=== PATIENT | male | born 1935 | race Caucasian/White ===

== ENCOUNTER 2022-02-18 23:18 | Inpatient (IN) | payer OTHER, MEDICAID ==
[~2022-02-18] VITALS: Ht 157.5 cm; Wt 85.9 kg
[2022-02-19] VITALS (11 sets, daily range): BP systolic 80–118; BP diastolic 51–84
[2022-02-19] MEDS ORDERED: ONDANSETRON HCL 4MG/2ML INJ IV STA (00:02)
[2022-02-19] MEDS ORDERED: MORPHINE SULFATE 4 MG/ML CPJ (NOT FOR IM USE) IV STA (00:02)
[2022-02-19] MEDS ORDERED: SODIUM CHLORIDE 0.9% 1,000 ML IV ONE (00:15)
[2022-02-19 00:35] LABS: HEMATOCRIT. 43.6 % (42.0-52.0); HEMOGLOBIN. 14.6 g/dL (14.0-18.0); MEAN CORPUSCULAR HEMOGLOBIN 29.9 pg (28.0-32.0); MEAN CORPUSCULAR VOLUME 89.1 fL (80.0-94.0); MEAN PLATELET VOLUME 8.5 fl (7.4-10.4); PLATELET 150 x1000/uL (130-400); RED BLOOD CELL COUNT 4.89 mill/uL (4.7-6.1); RED CELL DISTRIBUTION WIDTH 15.3 % (11.6-14.6)
[2022-02-19 00:39] LABS: CHLORIDE 95 mEq/L (98-107)
[2022-02-19 00:41] LABS: INR 1.5; PROTHROMBIN TIME 15.6 sec (9.6-11.0)
[2022-02-19 00:49] LABS: ETHANOL BLOOD < 10 mg/dL
[2022-02-19] MEDS ORDERED: METRONIDAZOLE 500 MG PREMIX 100 ML IV NR (01:00)
[2022-02-19] MEDS ORDERED: SODIUM CHLORIDE 0.9% 1,000 ML IV NR (01:00)
[2022-02-19] MEDS ORDERED: CEFTRIAXONE 1 G PREMIX 50 ML IV NR ×2 (01:05→02:45)
[2022-02-19] MEDS ORDERED: IOHEXOL-300 100 ML BOTTLE ONE (01:45)
[2022-02-19 03:25] LABS: PLATELET ESTIMATE NORMAL
[2022-02-19] MEDS ORDERED: MORPHINE SULFATE 4 MG/ML CPJ (NOT FOR IM USE) IV ONE (05:30)
[2022-02-19 06:04] LABS: CLARITY URINE CLEAR (CLEAR); COLOR URINE YELLOW (YELLOW); PROTEIN URINE TRACE (NEGATIVE); SPECIFIC GRAVITY URINE 1.015 (1.005-1.030)
[2022-02-19 06:05] LABS: KETONES URINE TRACE (NEGATIVE); LEUKOCYTE ESTERASE URINE NEGATIVE (NEGATIVE); NITRITE URINE NEGATIVE (NEGATIVE); OCCULT BLOOD URINE NEGATIVE (NEGATIVE); UROBILINOGEN URINE 0.2 E.U./dL (0.2-1.0)
[2022-02-19 06:12] LABS: *AMPHETAMINES SCREEN URINE NEGATIVE (NEGATIVE); *BARBITURATES SCREEN URINE NEGATIVE (NEGATIVE); *BENZODIAZEPINES SCREEN URINE NEGATIVE (NEGATIVE); *COCAINE SCREEN URINE NEGATIVE (NEGATIVE); CANNABINOID URINE SCREEN NEGATIVE (NEGATIVE); METHADONE URINE SCREEN NEGATIVE (NEGATIVE); OPIATES URINE SCREEN PRESUMTIVE POSITIVE (NEGATIVE); PHENCYCLIDINE URINE SCREEN NEGATIVE (NEGATIVE)
[2022-02-19] MEDS ORDERED: NALOXONE HCL 0.4MG/ML VIAL IV PRN (10:00)
[2022-02-19] MEDS ORDERED: ACETAMINOPHEN 325MG TABLET PO PRN ×2 (13:45)
[2022-02-19] MEDS ORDERED: IPRATROPIUM/ALBUTEROL 0.5-3(2.5)MG/3ML NEB HHN PRN (13:45)
[2022-02-19] MEDS ORDERED: CLONIDINE 0.1MG TABLET PO PRN (13:45)
[2022-02-19] MEDS ORDERED: ONDANSETRON HCL 4MG/2ML INJ IV PRN (13:45)
[2022-02-19] MEDS ORDERED: HYDROCODONE/ACETAMINOPHEN 5/325MG TABLET PO PRN (13:45)
[2022-02-19 13:59] LABS: BG BASE EXCESS 0.7 mmol/L (-2.0-2.0); BG CARBOXYHEMOGLOBIN 1.2 % (0.5-1.5); BG FRACTION INSPIRED OXYGEN 28; BG HCO3 ACT 25.7 mmol/L (22.0-26.0); BG OXYHEMOGLOBIN 95.8 % (94.0-97.0); BG PCO2 42.9 mmHg (35.0-45.0); BG PH 7.396 (7.350-7.450); BG PO2 114.4 mmHg (75.0-100.0); BG SAMPLE SITE RIGHT RADIAL; BG TOTAL HEMOGLOBIN 14.1 g/dL (12.0-18.0); BG VENT MODE NASAL CANNULA
[2022-02-19] MEDS: DILTIAZEM HCL 5MG/ML 5ML VIAL IV PRN ×2 (14:55→21:59)
[2022-02-19] MEDS: SODIUM CHLORIDE 0.9% 1,000 ML IV SCH (15:07)
[2022-02-19] MEDS ORDERED: DILTIAZEM HCL 125 MG in DEXT 5% WATER 100 ML IV SCH (16:30)
[2022-02-19] MEDS ORDERED: DIGOXIN 500MCG/2ML AMP IV NR (17:00)
[2022-02-19] MEDS: MORPHINE SULFATE 2 MG/ML CPJ (NOT FOR IM USE) IV PRN (17:05)
[2022-02-19] MEDS ORDERED: DILTIAZEM HCL 5MG/ML 5ML VIAL IV NR (18:15)
[2022-02-20] VITALS (13 sets, daily range): BP systolic 80–115; BP diastolic 30–78
[2022-02-20] MEDS: SODIUM CHLORIDE 0.9% 1,000 ML IV SCH ×3 (00:46→21:21)
[2022-02-20] MEDS ORDERED: AMIODARONE HCL 150 MG in DEXT 5% WATER 100 ML IV NR (01:30)
[2022-02-20 05:40] LABS: EOSINOPHILS % 1.7 % (0.0-5.0); HEMATOCRIT. 38.7 % (42.0-52.0); HEMOGLOBIN. 12.9 g/dL (14.0-18.0); LYMPHOCYTES % 8.8 % (20.0-50.0); MEAN CORPUSCULAR HEMOGLOBIN 29.6 pg (28.0-32.0); MEAN CORPUSCULAR VOLUME 88.6 fL (80.0-94.0); MEAN PLATELET VOLUME 9.1 fl (7.4-10.4); MONOCYTES % 13.1 % (2.0-8.0); NEUTROPHILS % 76.4 % (40.0-76.0); PLATELET 138 x1000/uL (130-400); RED BLOOD CELL COUNT 4.37 mill/uL (4.7-6.1); RED CELL DISTRIBUTION WIDTH 15.3 % (11.6-14.6)
[2022-02-20] MEDS: AMIODARONE HCL 900 MG in DEXT 5% WATER 482 ML IV PRN (06:20)
[2022-02-20] MEDS ORDERED: AMIODARONE HCL 150 MG in DEXT 5% WATER 100 ML IV SCH (07:30)
[2022-02-20] MEDS: FINASTERIDE 5MG TABLET PO SCH (08:20)
[2022-02-20] MEDS: ENOXAPARIN 30MG/0.3ML SYR SUBCUT SCH (08:20)
[2022-02-20] MEDS: LORAZEPAM 2MG/ML CPJ IV PRN (08:59)
[2022-02-20] MEDS: DILTIAZEM HCL 5MG/ML 5ML VIAL IV PRN (20:12)
[2022-02-21] VITALS (9 sets, daily range): BP systolic 108–142; BP diastolic 54–92
[2022-02-21] MEDS: DILTIAZEM HCL 5MG/ML 5ML VIAL IV PRN (02:00)
[2022-02-21] MEDS: SODIUM CHLORIDE 0.9% 1,000 ML IV SCH ×3 (06:11→21:30)
[2022-02-21 06:24] LABS: HEMATOCRIT. 35.5 % (42.0-52.0); HEMOGLOBIN. 11.8 g/dL (14.0-18.0); MEAN CORPUSCULAR HEMOGLOBIN 29.8 pg (28.0-32.0); MEAN CORPUSCULAR VOLUME 89.5 fL (80.0-94.0); MEAN PLATELET VOLUME 8.5 fl (7.4-10.4); PLATELET 146 x1000/uL (130-400); RED BLOOD CELL COUNT 3.96 mill/uL (4.7-6.1); RED CELL DISTRIBUTION WIDTH 15.3 % (11.6-14.6)
[2022-02-21 06:49] LABS: PHOSPHORUS 4.4 mg/dL (2.5-4.9)
[2022-02-21] MEDS: FINASTERIDE 5MG TABLET PO SCH (08:32)
[2022-02-21] MEDS: ENOXAPARIN 30MG/0.3ML SYR SUBCUT SCH (08:32)
[2022-02-21] MEDS ORDERED: FINA5TAB11 PO (10:20)
[2022-02-21 10:35] LABS: PLATELET ESTIMATE NORMAL
[2022-02-22] VITALS (34 sets, daily range): BP systolic 76–132; BP diastolic 37–66
[2022-02-22] MEDS: SODIUM CHLORIDE 0.9% 1,000 ML IV SCH ×3 (06:01→22:50)
[2022-02-22] MEDS ORDERED: CEFTRIAXONE 1 G PREMIX 50 ML IV SCH (07:30)
[2022-02-22 07:52] LABS: BASOPHILS % 0.1 % (0.0-2.0); EOSINOPHILS % 0.1 % (0.0-5.0); HEMOGLOBIN. 11.6 g/dL (14.0-18.0); LYMPHOCYTES % 7.1 % (20.0-50.0); MEAN CORPUSCULAR HEMOGLOBIN 29.9 pg (28.0-32.0); MEAN CORPUSCULAR VOLUME 90.2 fL (80.0-94.0); MEAN PLATELET VOLUME 8.4 fl (7.4-10.4); MONOCYTES % 14.2 % (2.0-8.0); NEUTROPHILS % 78.5 % (40.0-76.0); PLATELET 147 x1000/uL (130-400); RED BLOOD CELL COUNT 3.88 mill/uL (4.7-6.1); RED CELL DISTRIBUTION WIDTH 15.7 % (11.6-14.6)
[2022-02-22 07:59] LABS: CHLORIDE 106 mEq/L (98-107)
[2022-02-22 08:06] LABS: PHOSPHORUS 7.3 mg/dL (2.5-4.9)
[2022-02-22] MEDS: FINASTERIDE 5MG TABLET PO SCH (08:51)
[2022-02-22] MEDS: ENOXAPARIN 30MG/0.3ML SYR SUBCUT SCH (08:56)
[2022-02-22] MEDS: AZITHROMYCIN 500 MG in DEXT 5% WATER 250 ML IV SCH (08:56)
[2022-02-22 09:11] LABS: BG BASE EXCESS -4.7 mmol/L (-2.0-2.0); BG CARBOXYHEMOGLOBIN 0.1 % (0.5-1.5); BG DEOXYHEMOGLOBIN 1.6 % (0.0-5.0); BG FRACTION INSPIRED OXYGEN 100; BG HCO3 ACT 23.8 mmol/L (22.0-26.0); BG METHEMOGLOBIN 0.4 % (0.0-1.5); BG OXYGEN SATURATION 98.4 % (92.0-98.5); BG OXYHEMOGLOBIN 97.9 % (94.0-97.0); BG PCO2 60.5 mmHg (35.0-45.0); BG PH 7.213 (7.350-7.450); BG PO2 143.2 mmHg (75.0-100.0); BG SAMPLE SITE RIGHT RADIAL; BG TOTAL HEMOGLOBIN 12.3 g/dL (12.0-18.0); BG VENT MODE MASK - NRB
[2022-02-22] MEDS: AMIODARONE HCL 900 MG in DEXT 5% WATER 482 ML IV PRN (10:21)
[2022-02-22] MEDS: CEFTRIAXONE 1,000 MG in DEXTROSE 5% WATER 50 ML IV SCH (10:28)
[2022-02-22] MEDS: IPRATROPIUM/ALBUTEROL 0.5-3(2.5)MG/3ML NEB HHN SCH ×4 (10:52→23:44)
[2022-02-22] MEDS ORDERED: DIATR MEGLU/DIATRIZOATE SOLN 120ML ONE (11:44)
[2022-02-22] MEDS: ACETYLCYSTEINE 200MG/ML 20% VIAL 4ML INH SCH ×2 (14:00→23:44)
[2022-02-22] MEDS ORDERED: AMIODARONE HCL 150 MG in DEXT 5% WATER 100 ML IV PRN (15:30)
[2022-02-22] MEDS: METRONIDAZOLE 500 MG PREMIX 100 ML IV SCH ×2 (15:59→17:18)
[2022-02-22 17:42] LABS: BG BASE EXCESS -2.4 mmol/L (-2.0-2.0); BG CARBOXYHEMOGLOBIN 0.3 % (0.5-1.5); BG DEOXYHEMOGLOBIN 5.9 % (0.0-5.0); BG FRACTION INSPIRED OXYGEN 60; BG HCO3 ACT 27.6 mmol/L (22.0-26.0); BG METHEMOGLOBIN 0.2 % (0.0-1.5); BG OXYGEN SATURATION 94.1 % (92.0-98.5); BG OXYHEMOGLOBIN 93.6 % (94.0-97.0); BG PCO2 75.9 mmHg (35.0-45.0); BG PH 7.178 (7.350-7.450); BG PO2 79.6 mmHg (75.0-100.0); BG SAMPLE SITE RIGHT RADIAL; BG TOTAL HEMOGLOBIN 12.4 g/dL (12.0-18.0); BG TOTAL RESPIRATORY RATE 20 b/min; BG VENT MODE MASK - BIPAP
[2022-02-22] MEDS: PHENYLEPHRINE 50 MG in DEXT 5% WATER 245 ML IV PRN (19:00)
[2022-02-22 22:12] LABS: BG BASE EXCESS -2.3 mmol/L (-2.0-2.0); BG CARBOXYHEMOGLOBIN 0.2 % (0.5-1.5); BG DEOXYHEMOGLOBIN 5.2 % (0.0-5.0); BG FRACTION INSPIRED OXYGEN 60; BG HCO3 ACT 26.5 mmol/L (22.0-26.0); BG METHEMOGLOBIN 0.2 % (0.0-1.5); BG OXYGEN SATURATION 94.8 % (92.0-98.5); BG OXYHEMOGLOBIN 94.4 % (94.0-97.0); BG PCO2 65.8 mmHg (35.0-45.0); BG PH 7.223 (7.350-7.450); BG PO2 79.6 mmHg (75.0-100.0); BG SAMPLE SITE RIGHT RADIAL; BG TOTAL HEMOGLOBIN 12.3 g/dL (12.0-18.0); BG VENT MODE MASK - BIPAP
[2022-02-23] VITALS (93 sets, daily range): BP systolic 69–135; BP diastolic 26–107
[2022-02-23] MEDS: PHENYLEPHRINE 50 MG in DEXT 5% WATER 245 ML IV PRN (01:27)
[2022-02-23] MEDS: IPRATROPIUM/ALBUTEROL 0.5-3(2.5)MG/3ML NEB HHN SCH ×5 (03:50→20:01)
[2022-02-23] MEDS: METRONIDAZOLE 500 MG PREMIX 100 ML IV SCH ×3 (04:32→18:30)
[2022-02-23 05:11] LABS: HEMATOCRIT. 36.9 % (42.0-52.0); HEMOGLOBIN. 11.8 g/dL (14.0-18.0); MEAN CORPUSCULAR HEMOGLOBIN 29.5 pg (28.0-32.0); MEAN PLATELET VOLUME 8.9 fl (7.4-10.4); PLATELET 127 x1000/uL (130-400); RED BLOOD CELL COUNT 4.02 mill/uL (4.7-6.1); RED CELL DISTRIBUTION WIDTH 16.7 % (11.6-14.6)
[2022-02-23] MEDS: PHENYLEPHRINE 100 MG in DEXT 5% WATER 240 ML IV PRN ×3 (05:14→23:43)
[2022-02-23 05:19] LABS: CHLORIDE 111 mEq/L (98-107)
[2022-02-23 05:30] LABS: PHOSPHORUS 5.7 mg/dL (2.5-4.9)
[2022-02-23] MEDS: SODIUM CHLORIDE 0.9% 1,000 ML IV SCH ×2 (05:46→15:04)
[2022-02-23 07:42] LABS: PLATELET ESTIMATE SLIGHTLY DECREASED
[2022-02-23 08:35] LABS: BG BASE EXCESS -2.4 mmol/L (-2.0-2.0); BG CARBOXYHEMOGLOBIN 0.2 % (0.5-1.5); BG DEOXYHEMOGLOBIN 2.6 % (0.0-5.0); BG FRACTION INSPIRED OXYGEN 60; BG HCO3 ACT 24.2 mmol/L (22.0-26.0); BG METHEMOGLOBIN 1.1 % (0.0-1.5); BG OXYGEN SATURATION 97.4 % (92.0-98.5); BG OXYHEMOGLOBIN 96.1 % (94.0-97.0); BG PCO2 49.2 mmHg (35.0-45.0); BG PH 7.309 (7.350-7.450); BG PO2 106.6 mmHg (75.0-100.0); BG SAMPLE SITE RIGHT RADIAL; BG TOTAL HEMOGLOBIN 12.2 g/dL (12.0-18.0); BG VENT MODE MASK - BIPAP
[2022-02-23] MEDS: ACETYLCYSTEINE 200MG/ML 20% VIAL 4ML INH SCH (08:43)
[2022-02-23] MEDS: FINASTERIDE 5MG TABLET PO SCH (09:00)
[2022-02-23] MEDS: ENOXAPARIN 30MG/0.3ML SYR SUBCUT SCH (09:17)
[2022-02-23] MEDS: AZITHROMYCIN 500 MG in DEXT 5% WATER 250 ML IV SCH (09:17)
[2022-02-23] MEDS: CEFTRIAXONE 1,000 MG in DEXTROSE 5% WATER 50 ML IV SCH (10:19)
[2022-02-23] MEDS ORDERED: AMIODARONE HCL 150 MG in DEXT 5% WATER 100 ML IV NR (11:30)
[2022-02-23] MEDS ORDERED: ATROPINE SULFATE 1MG/10ML SYR IV NR (20:15)
[2022-02-23] MEDS: MORPHINE SULFATE 2 MG/ML CPJ (NOT FOR IM USE) IV PRN (21:38)
[2022-02-23] MEDS: LORAZEPAM 2MG/ML CPJ IV PRN (23:26)
[2022-02-23] MEDS: DILTIAZEM HCL 5MG/ML 5ML VIAL IV PRN (23:29)
[2022-02-24] VITALS (90 sets, daily range): BP systolic 85–158; BP diastolic 34–105
[2022-02-24] MEDS: IPRATROPIUM/ALBUTEROL 0.5-3(2.5)MG/3ML NEB HHN SCH ×6 (00:07→20:15)
[2022-02-24] MEDS: ACETYLCYSTEINE 200MG/ML 20% VIAL 4ML INH SCH ×3 (00:07→16:21)
[2022-02-24] MEDS: SODIUM CHLORIDE 0.9% 1,000 ML IV SCH (02:39)
[2022-02-24] MEDS: METRONIDAZOLE 500 MG PREMIX 100 ML IV SCH ×3 (02:40→18:16)
[2022-02-24 05:49] LABS: HEMATOCRIT. 34.7 % (42.0-52.0); HEMOGLOBIN. 11.5 g/dL (14.0-18.0); MEAN CORPUSCULAR HEMOGLOBIN 29.7 pg (28.0-32.0); MEAN CORPUSCULAR VOLUME 89.5 fL (80.0-94.0); MEAN PLATELET VOLUME 8.7 fl (7.4-10.4); PLATELET 146 x1000/uL (130-400); RED BLOOD CELL COUNT 3.87 mill/uL (4.7-6.1); RED CELL DISTRIBUTION WIDTH 15.8 % (11.6-14.6)
[2022-02-24] MEDS: DILTIAZEM HCL 5MG/ML 5ML VIAL IV PRN (06:01)
[2022-02-24 08:11] LABS: PLATELET ESTIMATE NORMAL
[2022-02-24 08:24] LABS: PHOSPHORUS 2.7 mg/dL (2.5-4.9)
[2022-02-24] MEDS: FINASTERIDE 5MG TABLET PO SCH (09:00)
[2022-02-24] MEDS: AZITHROMYCIN 500 MG in DEXT 5% WATER 250 ML IV SCH (09:13)
[2022-02-24] MEDS: ENOXAPARIN 30MG/0.3ML SYR SUBCUT SCH (09:13)
[2022-02-24 09:20] LABS: BG BASE EXCESS 1.1 mmol/L (-2.0-2.0); BG CARBOXYHEMOGLOBIN 0.6 % (0.5-1.5); BG DEOXYHEMOGLOBIN 7.5 % (0.0-5.0); BG FRACTION INSPIRED OXYGEN 28; BG METHEMOGLOBIN 0.5 % (0.0-1.5); BG OXYGEN SATURATION 92.4 % (92.0-98.5); BG OXYHEMOGLOBIN 91.4 % (94.0-97.0); BG PCO2 61.7 mmHg (35.0-45.0); BG PO2 69.4 mmHg (75.0-100.0); BG SAMPLE SITE RIGHT RADIAL; BG TOTAL HEMOGLOBIN 12.6 g/dL (12.0-18.0); BG VENT MODE NASAL CANNULA
[2022-02-24] MEDS ORDERED: AMIODARONE HCL 900 MG in DEXT 5% WATER 482 ML IV SCH (10:00)
[2022-02-24] MEDS: CEFTRIAXONE 1,000 MG in DEXTROSE 5% WATER 50 ML IV SCH (10:14)
[2022-02-24] MEDS: DEXTROSE 5% WATER 1,000 ML IV SCH (10:29)
[2022-02-24] MEDS ORDERED: MORPHINE SULFATE 2 MG/ML CPJ (NOT FOR IM USE) IV PRN (19:15)
[2022-02-24] MEDS ORDERED: NALOXONE HCL 0.4MG/ML VIAL IV PRN (19:30)
[2022-02-25] VITALS (94 sets, daily range): BP systolic 33–150; BP diastolic 24–104
[2022-02-25] MEDS: IPRATROPIUM/ALBUTEROL 0.5-3(2.5)MG/3ML NEB HHN SCH ×6 (00:20→20:34)
[2022-02-25] MEDS: ACETYLCYSTEINE 200MG/ML 20% VIAL 4ML INH SCH ×4 (00:20→16:25)
[2022-02-25] MEDS: DEXTROSE 5% WATER 1,000 ML IV SCH ×2 (04:24→13:55)
[2022-02-25] MEDS: METRONIDAZOLE 500 MG PREMIX 100 ML IV SCH ×3 (04:26→19:30)
[2022-02-25 05:50] LABS: HEMATOCRIT. 34.3 % (42.0-52.0); HEMOGLOBIN. 11.1 g/dL (14.0-18.0); MEAN CORPUSCULAR HEMOGLOBIN 29.3 pg (28.0-32.0); MEAN PLATELET VOLUME 8.4 fl (7.4-10.4); PLATELET 110 x1000/uL (130-400); RED BLOOD CELL COUNT 3.81 mill/uL (4.7-6.1); RED CELL DISTRIBUTION WIDTH 16.2 % (11.6-14.6)
[2022-02-25 06:06] LABS: PHOSPHORUS 1.7 mg/dL (2.5-4.9)
[2022-02-25] MEDS: DILTIAZEM HCL 5MG/ML 5ML VIAL IV PRN (06:14)
[2022-02-25 07:18] LABS: BG BASE EXCESS 0.6 mmol/L (-2.0-2.0); BG CARBOXYHEMOGLOBIN 0.4 % (0.5-1.5); BG DEOXYHEMOGLOBIN 10.4 % (0.0-5.0); BG HCO3 ACT 27.5 mmol/L (22.0-26.0); BG METHEMOGLOBIN 0.3 % (0.0-1.5); BG OXYGEN SATURATION 89.5 % (92.0-98.5); BG OXYHEMOGLOBIN 88.9 % (94.0-97.0); BG PCO2 54.6 mmHg (35.0-45.0); BG PO2 56.9 mmHg (75.0-100.0); BG SAMPLE SITE RIGHT RADIAL; BG TOTAL HEMOGLOBIN 11.9 g/dL (12.0-18.0); BG VENT MODE NASAL CANNULA
[2022-02-25 07:29] LABS: PLATELET ESTIMATE DECREASED
[2022-02-25] MEDS: ENOXAPARIN 30MG/0.3ML SYR SUBCUT SCH (08:42)
[2022-02-25] MEDS: FINASTERIDE 5MG TABLET PO SCH (08:42)
[2022-02-25] MEDS: AZITHROMYCIN 500 MG in DEXT 5% WATER 250 ML IV SCH (08:42)
[2022-02-25] MEDS: CEFTRIAXONE 1,000 MG in DEXTROSE 5% WATER 50 ML IV SCH (10:53)
[2022-02-25] MEDS ORDERED: POTASSIUM PHOS,M-BASIC-D-BASIC 20 MMOL in DEXT 5% WATER 243.3333 ML IV NR (16:30)
[2022-02-25] MEDS: BLOOD SUGAR DIAGNOSTIC STRIP TEST SCH (17:51)
[2022-02-26] VITALS (95 sets, daily range): BP systolic 57–164; BP diastolic 19–127
[2022-02-26] MEDS: DEXTROSE 5% WATER 1,000 ML IV SCH ×2 (01:40→15:41)
[2022-02-26] MEDS: IPRATROPIUM/ALBUTEROL 0.5-3(2.5)MG/3ML NEB HHN SCH ×3 (05:45→08:36)
[2022-02-26 05:46] LABS: HEMATOCRIT. 32.2 % (42.0-52.0); HEMOGLOBIN. 10.7 g/dL (14.0-18.0); MEAN CORPUSCULAR HEMOGLOBIN 29.7 pg (28.0-32.0); MEAN CORPUSCULAR VOLUME 89.4 fL (80.0-94.0); MEAN PLATELET VOLUME 8.6 fl (7.4-10.4); PLATELET 93 x1000/uL (130-400); RED CELL DISTRIBUTION WIDTH 15.8 % (11.6-14.6)
[2022-02-26] MEDS: BLOOD SUGAR DIAGNOSTIC STRIP TEST SCH ×2 (06:00→17:42)
[2022-02-26 06:35] LABS: CHLORIDE 116 mEq/L (98-107)
[2022-02-26 06:51] LABS: PHOSPHORUS 1.5 mg/dL (2.5-4.9)
[2022-02-26] MEDS: METRONIDAZOLE 500 MG PREMIX 100 ML IV SCH ×4 (07:01→18:00)
[2022-02-26] MEDS: PHENYLEPHRINE 100 MG in DEXT 5% WATER 240 ML IV PRN ×2 (07:09→22:11)
[2022-02-26 07:43] LABS: BG BASE EXCESS 2.3 mmol/L (-2.0-2.0); BG DEOXYHEMOGLOBIN 7.9 % (0.0-5.0); BG HCO3 ACT 28.6 mmol/L (22.0-26.0); BG METHEMOGLOBIN 0.4 % (0.0-1.5); BG OXYHEMOGLOBIN 90.7 % (94.0-97.0); BG PCO2 52.2 mmHg (35.0-45.0); BG PH 7.357 (7.350-7.450); BG PO2 60.8 mmHg (75.0-100.0); BG SAMPLE SITE RIGHT RADIAL; BG TOTAL HEMOGLOBIN 12.1 g/dL (12.0-18.0); BG VENT MODE NASAL CANNULA
[2022-02-26] MEDS: AZITHROMYCIN 500 MG in DEXT 5% WATER 250 ML IV SCH (08:00)
[2022-02-26] MEDS: FINASTERIDE 5MG TABLET PO SCH (08:01)
[2022-02-26] MEDS: ENOXAPARIN 40MG/0.4ML SYR SUBCUT SCH (08:01)
[2022-02-26] MEDS: ACETYLCYSTEINE 200MG/ML 20% VIAL 4ML INH SCH (08:36)
[2022-02-26] MEDS: CEFTRIAXONE 1,000 MG in DEXTROSE 5% WATER 50 ML IV SCH (09:01)
[2022-02-26 09:39] LABS: PLATELET ESTIMATE DECREASED
[2022-02-26] MEDS ORDERED: MIDODRINE HCL 5MG TABLET PO SCH (14:00)
[2022-02-26] MEDS: MIDODRINE HCL 5MG TABLET PO SCH ×2 (14:22→17:54)
[2022-02-26] MEDS ORDERED: POTASSIUM PHOS,M-BASIC-D-BASIC 20 MMOL in DEXT 5% WATER 243.3333 ML IV NR (15:00)
[2022-02-26] MEDS: IPRATROPIUM BROMIDE (0.02%) 0.5MG/2.5ML NEB HHN SCH (20:15)
[2022-02-27] VITALS (101 sets, daily range): BP systolic 54–153; BP diastolic 26–105
[2022-02-27] MEDS: IPRATROPIUM BROMIDE (0.02%) 0.5MG/2.5ML NEB HHN SCH ×4 (00:49→20:29)
[2022-02-27] MEDS: ACETYLCYSTEINE 200MG/ML 20% VIAL 4ML INH SCH ×3 (00:49→14:29)
[2022-02-27] MEDS: DEXTROSE 5% WATER 1,000 ML IV SCH ×2 (01:47→11:41)
[2022-02-27 05:56] LABS: HEMATOCRIT. 30.9 % (42.0-52.0); HEMOGLOBIN. 10.4 g/dL (14.0-18.0); MEAN CORPUSCULAR HEMOGLOBIN 30.4 pg (28.0-32.0); MEAN CORPUSCULAR VOLUME 90.1 fL (80.0-94.0); MEAN PLATELET VOLUME 9.3 fl (7.4-10.4); PLATELET 94 x1000/uL (130-400); RED BLOOD CELL COUNT 3.43 mill/uL (4.7-6.1)
[2022-02-27] MEDS: METRONIDAZOLE 500 MG PREMIX 100 ML IV SCH ×3 (06:02→17:55)
[2022-02-27] MEDS: BLOOD SUGAR DIAGNOSTIC STRIP TEST SCH ×2 (06:03→17:55)
[2022-02-27 06:10] LABS: CHLORIDE 108 mEq/L (98-107)
[2022-02-27 06:20] LABS: PHOSPHORUS 1.7 mg/dL (2.5-4.9)
[2022-02-27 08:12] LABS: BG BASE EXCESS 1.1 mmol/L (-2.0-2.0); BG CARBOXYHEMOGLOBIN 0.8 % (0.5-1.5); BG DEOXYHEMOGLOBIN 9.8 % (0.0-5.0); BG FRACTION INSPIRED OXYGEN 28; BG HCO3 ACT 27.8 mmol/L (22.0-26.0); BG METHEMOGLOBIN 0.1 % (0.0-1.5); BG OXYGEN SATURATION 90.1 % (92.0-98.5); BG OXYHEMOGLOBIN 89.3 % (94.0-97.0); BG PCO2 54.1 mmHg (35.0-45.0); BG PH 7.328 (7.350-7.450); BG PO2 57.8 mmHg (75.0-100.0); BG SAMPLE SITE RIGHT RADIAL; BG TOTAL HEMOGLOBIN 10.5 g/dL (12.0-18.0); BG VENT MODE NASAL CANNULA
[2022-02-27 08:17] LABS: PLATELET ESTIMATE DECREASED
[2022-02-27] MEDS: ENOXAPARIN 40MG/0.4ML SYR SUBCUT SCH (08:33)
[2022-02-27] MEDS: FINASTERIDE 5MG TABLET PO SCH (08:34)
[2022-02-27] MEDS: MIDODRINE HCL 5MG TABLET PO SCH ×3 (08:34→17:55)
[2022-02-27] MEDS ORDERED: POTASSIUM PHOS,M-BASIC-D-BASIC 30 MMOL in DEXT 5% WATER 500 ML IV NR ×2 (09:00→10:30)
[2022-02-27] MEDS: CEFTRIAXONE 1,000 MG in DEXTROSE 5% WATER 50 ML IV SCH (09:42)
[2022-02-28] VITALS (79 sets, daily range): BP systolic 85–130; BP diastolic 36–66
[2022-02-28] MEDS: DEXTROSE 5% WATER 1,000 ML IV SCH (00:58)
[2022-02-28] MEDS: ACETYLCYSTEINE 200MG/ML 20% VIAL 4ML INH SCH (01:27)
[2022-02-28] MEDS: IPRATROPIUM BROMIDE (0.02%) 0.5MG/2.5ML NEB HHN SCH ×3 (01:27→21:15)
[2022-02-28] MEDS: METRONIDAZOLE 500 MG PREMIX 100 ML IV SCH ×3 (03:09→20:08)
[2022-02-28] MEDS: BLOOD SUGAR DIAGNOSTIC STRIP TEST SCH ×2 (06:13→17:01)
[2022-02-28 06:55] LABS: HEMATOCRIT. 32.2 % (42.0-52.0); HEMOGLOBIN. 10.7 g/dL (14.0-18.0); MEAN CORPUSCULAR HEMOGLOBIN 29.9 pg (28.0-32.0); MEAN CORPUSCULAR VOLUME 90.4 fL (80.0-94.0); MEAN PLATELET VOLUME 8.5 fl (7.4-10.4); PLATELET 82 x1000/uL (130-400); RED BLOOD CELL COUNT 3.57 mill/uL (4.7-6.1); RED CELL DISTRIBUTION WIDTH 15.6 % (11.6-14.6)
[2022-02-28 07:12] LABS: CHLORIDE 103 mEq/L (98-107)
[2022-02-28 07:23] LABS: PHOSPHORUS 2.3 mg/dL (2.5-4.9)
[2022-02-28] MEDS ORDERED: FUROSEMIDE 40MG/4ML VIAL IVP NR (08:15)
[2022-02-28] MEDS: ENOXAPARIN 40MG/0.4ML SYR SUBCUT SCH (08:39)
[2022-02-28] MEDS ORDERED: DEXTROSE 5% WATER 1,000 ML IV SCH (08:45)
[2022-02-28] MEDS ORDERED: POTASSIUM PHOS,M-BASIC-D-BASIC 15 MMOL in DEXT 5% WATER 250 ML IV SCH (10:00)
[2022-02-28] MEDS: MIDODRINE HCL 5MG TABLET PO SCH ×3 (10:29→17:02)
[2022-02-28] MEDS: FINASTERIDE 5MG TABLET PO SCH (10:29)
[2022-02-28] MEDS: CEFTRIAXONE 1,000 MG in DEXTROSE 5% WATER 50 ML IV SCH (10:30)
[2022-02-28 14:27] LABS: PLATELET ESTIMATE DECREASED
[2022-03-01] VITALS (12 sets, daily range): BP systolic 100–140; BP diastolic 50–69
[2022-03-01] MEDS: IPRATROPIUM BROMIDE (0.02%) 0.5MG/2.5ML NEB HHN SCH ×4 (01:42→20:39)
[2022-03-01] MEDS: METRONIDAZOLE 500 MG PREMIX 100 ML IV SCH ×3 (03:11→20:07)
[2022-03-01] MEDS: BLOOD SUGAR DIAGNOSTIC STRIP TEST SCH ×2 (06:20→18:07)
[2022-03-01 07:11] LABS: BASOPHILS % 0.3 % (0.0-2.0); EOSINOPHILS % 3.8 % (0.0-5.0); HEMATOCRIT. 29.6 % (42.0-52.0); HEMOGLOBIN. 9.9 g/dL (14.0-18.0); LYMPHOCYTES % 10.1 % (20.0-50.0); MEAN CORPUSCULAR HEMOGLOBIN 29.6 pg (28.0-32.0); MEAN CORPUSCULAR VOLUME 88.8 fL (80.0-94.0); MEAN PLATELET VOLUME 8.8 fl (7.4-10.4); MONOCYTES % 4.6 % (2.0-8.0); NEUTROPHILS % 81.2 % (40.0-76.0); PLATELET 88 x1000/uL (130-400); RED BLOOD CELL COUNT 3.34 mill/uL (4.7-6.1); RED CELL DISTRIBUTION WIDTH 14.9 % (11.6-14.6)
[2022-03-01 07:52] LABS: CHLORIDE 102 mEq/L (98-107)
[2022-03-01 08:07] LABS: PHOSPHORUS 1.5 mg/dL (2.5-4.9)
[2022-03-01] MEDS ORDERED: POTASSIUM CHLORIDE 20MEQ/PACKET PO NR (09:00)
[2022-03-01] MEDS: ENOXAPARIN 40MG/0.4ML SYR SUBCUT SCH (09:29)
[2022-03-01] MEDS: MIDODRINE HCL 5MG TABLET PO SCH ×3 (09:29→16:00)
[2022-03-01] MEDS: FINASTERIDE 5MG TABLET PO SCH (09:29)
[2022-03-01] MEDS: CEFTRIAXONE 1,000 MG in DEXTROSE 5% WATER 50 ML IV SCH (09:30)
[2022-03-01] MEDS ORDERED: MAGNESIUM 2 G PREMIX 50 ML IV NR (13:00)
[2022-03-01] MEDS ORDERED: POTASSIUM PHOS,M-BASIC-D-BASIC 15 MMOL in DEXT 5% WATER 245 ML IV SCH (16:00)
[2022-03-02] VITALS (11 sets, daily range): BP systolic 98–131; BP diastolic 49–70
[2022-03-02] MEDS: IPRATROPIUM BROMIDE (0.02%) 0.5MG/2.5ML NEB HHN SCH ×4 (00:47→21:05)
[2022-03-02] MEDS: BLOOD SUGAR DIAGNOSTIC STRIP TEST SCH ×2 (06:26→18:00)
[2022-03-02 06:38] LABS: BASOPHILS % 0.4 % (0.0-2.0); EOSINOPHILS % 4.6 % (0.0-5.0); HEMATOCRIT. 32.6 % (42.0-52.0); HEMOGLOBIN. 10.9 g/dL (14.0-18.0); LYMPHOCYTES % 11.4 % (20.0-50.0); MEAN CORPUSCULAR HEMOGLOBIN 29.8 pg (28.0-32.0); MEAN CORPUSCULAR VOLUME 89.1 fL (80.0-94.0); MEAN PLATELET VOLUME 8.3 fl (7.4-10.4); MONOCYTES % 6.2 % (2.0-8.0); NEUTROPHILS % 77.4 % (40.0-76.0); PLATELET 114 x1000/uL (130-400); RED BLOOD CELL COUNT 3.66 mill/uL (4.7-6.1)
[2022-03-02] MEDS: ENOXAPARIN 40MG/0.4ML SYR SUBCUT SCH (08:46)
[2022-03-02] MEDS: MIDODRINE HCL 5MG TABLET PO SCH ×3 (08:47→17:00)
[2022-03-02] MEDS: FINASTERIDE 5MG TABLET PO SCH (08:47)
[2022-03-02 09:53] LABS: BG BASE EXCESS 10.6 mmol/L (-2.0-2.0); BG CARBOXYHEMOGLOBIN 0.5 % (0.5-1.5); BG FRACTION INSPIRED OXYGEN 20; BG METHEMOGLOBIN 0.1 % (0.0-1.5); BG OXYHEMOGLOBIN 94.4 % (94.0-97.0); BG PCO2 67.6 mmHg (35.0-45.0); BG PH 7.368 (7.350-7.450); BG SAMPLE SITE LEFT RADIAL; BG TOTAL HEMOGLOBIN 10.9 g/dL (12.0-18.0); BG VENT MODE NASAL CANNULA
[2022-03-02 10:40] LABS: CHLORIDE 99 mEq/L (98-107)
[2022-03-02 11:03] LABS: PHOSPHORUS 1.8 mg/dL (2.5-4.9)
[2022-03-03] VITALS (7 sets, daily range): BP systolic 98–156; BP diastolic 43–60
[2022-03-03] MEDS: IPRATROPIUM BROMIDE (0.02%) 0.5MG/2.5ML NEB HHN SCH ×4 (02:20→21:45)
[2022-03-03] MEDS: BLOOD SUGAR DIAGNOSTIC STRIP TEST SCH ×2 (06:30→17:22)
[2022-03-03 06:48] LABS: BASOPHILS % 0.1 % (0.0-2.0); EOSINOPHILS % 4.8 % (0.0-5.0); HEMATOCRIT. 29.7 % (42.0-52.0); HEMOGLOBIN. 9.9 g/dL (14.0-18.0); LYMPHOCYTES % 11.4 % (20.0-50.0); MEAN CORPUSCULAR HEMOGLOBIN 29.8 pg (28.0-32.0); MEAN CORPUSCULAR VOLUME 89.3 fL (80.0-94.0); MEAN PLATELET VOLUME 8.4 fl (7.4-10.4); MONOCYTES % 6.6 % (2.0-8.0); NEUTROPHILS % 77.1 % (40.0-76.0); PLATELET 116 x1000/uL (130-400); RED BLOOD CELL COUNT 3.32 mill/uL (4.7-6.1); RED CELL DISTRIBUTION WIDTH 14.9 % (11.6-14.6)
[2022-03-03] MEDS: FINASTERIDE 5MG TABLET PO SCH (08:57)
[2022-03-03] MEDS: MIDODRINE HCL 5MG TABLET PO SCH ×3 (08:59→17:22)
[2022-03-03] MEDS: ENOXAPARIN 40MG/0.4ML SYR SUBCUT SCH (09:00)
[2022-03-03 09:29] LABS: CHLORIDE 100 mEq/L (98-107)
[2022-03-03 09:36] LABS: PHOSPHORUS 1.4 mg/dL (2.5-4.9)
[2022-03-04] VITALS: BP 132/52
[2022-03-04] MEDS: IPRATROPIUM BROMIDE (0.02%) 0.5MG/2.5ML NEB HHN SCH ×5 (02:54→20:32)
[2022-03-04 04:00] VITALS: BP 108/54
[2022-03-04] MEDS: BLOOD SUGAR DIAGNOSTIC STRIP TEST SCH ×2 (05:46→17:19)
[2022-03-04 07:20] LABS: BASOPHILS % 0.5 % (0.0-2.0); EOSINOPHILS % 5.4 % (0.0-5.0); HEMATOCRIT. 29.6 % (42.0-52.0); HEMOGLOBIN. 9.8 g/dL (14.0-18.0); LYMPHOCYTES % 15.7 % (20.0-50.0); MEAN CORPUSCULAR HEMOGLOBIN 29.8 pg (28.0-32.0); MEAN CORPUSCULAR VOLUME 89.9 fL (80.0-94.0); MEAN PLATELET VOLUME 8.2 fl (7.4-10.4); MONOCYTES % 7.3 % (2.0-8.0); NEUTROPHILS % 71.1 % (40.0-76.0); PLATELET 133 x1000/uL (130-400); RED BLOOD CELL COUNT 3.29 mill/uL (4.7-6.1); RED CELL DISTRIBUTION WIDTH 15.4 % (11.6-14.6)
[2022-03-04 07:35] LABS: CHLORIDE 101 mEq/L (98-107)
[2022-03-04 08:00] VITALS: BP 101/59
[2022-03-04] MEDS: ENOXAPARIN 40MG/0.4ML SYR SUBCUT SCH (08:53)
[2022-03-04] MEDS: FINASTERIDE 5MG TABLET PO SCH (08:53)
[2022-03-04] MEDS: MIDODRINE HCL 5MG TABLET PO SCH ×3 (08:54→16:44)
[2022-03-04 10:39] LABS: BG BASE EXCESS 10.7 mmol/L (-2.0-2.0); BG CARBOXYHEMOGLOBIN 0.8 % (0.5-1.5); BG DEOXYHEMOGLOBIN 4.9 % (0.0-5.0); BG FRACTION INSPIRED OXYGEN 28; BG HCO3 ACT 38.1 mmol/L (22.0-26.0); BG METHEMOGLOBIN 0.1 % (0.0-1.5); BG OXYGEN SATURATION 95.1 % (92.0-98.5); BG OXYHEMOGLOBIN 94.2 % (94.0-97.0); BG PH 7.373 (7.350-7.450); BG PO2 74.7 mmHg (75.0-100.0); BG SAMPLE SITE RIGHT RADIAL; BG TOTAL HEMOGLOBIN 11.1 g/dL (12.0-18.0); BG VENT MODE NASAL CANNULA
[2022-03-04 12:00] VITALS: BP 105/83
[2022-03-04 16:00] VITALS: BP 111/85
[2022-03-04 20:15] VITALS: BP 123/48
[2022-03-05 00:06] VITALS: BP 117/74
[2022-03-05] MEDS: IPRATROPIUM BROMIDE (0.02%) 0.5MG/2.5ML NEB HHN SCH ×4 (01:37→20:49)
[2022-03-05 04:00] VITALS: BP 110/48
[2022-03-05] MEDS: BLOOD SUGAR DIAGNOSTIC STRIP TEST SCH (06:00)
[2022-03-05 08:00] VITALS: BP 94/58
[2022-03-05] MEDS: MIDODRINE HCL 5MG TABLET PO SCH ×3 (08:14→17:40)
[2022-03-05] MEDS: FINASTERIDE 5MG TABLET PO SCH (08:14)
[2022-03-05] MEDS: ENOXAPARIN 40MG/0.4ML SYR SUBCUT SCH (08:14)
[2022-03-05 12:00] VITALS: BP 95/60
[2022-03-05] MEDS: DILTIAZEM HCL 60MG TABLET PO SCH ×2 (14:00→21:16)
[2022-03-05 16:00] VITALS: BP 98/59
[2022-03-05 20:53] VITALS: BP 107/55
[2022-03-06] VITALS (7 sets, daily range): BP systolic 111–125; BP diastolic 64–72
[2022-03-06] MEDS: IPRATROPIUM BROMIDE (0.02%) 0.5MG/2.5ML NEB HHN SCH ×4 (01:43→20:32)
[2022-03-06] MEDS: DILTIAZEM HCL 60MG TABLET PO SCH (06:44)
[2022-03-06] MEDS: FINASTERIDE 5MG TABLET PO SCH (08:35)
[2022-03-06] MEDS: MIDODRINE HCL 5MG TABLET PO SCH ×3 (08:35→18:59)
[2022-03-06] MEDS: ENOXAPARIN 40MG/0.4ML SYR SUBCUT SCH (08:42)
[2022-03-06] MEDS ORDERED: AMIODARONE HCL 200 MG TABLET PO NR (13:00)
[2022-03-06 15:56] LABS: BG CARBOXYHEMOGLOBIN 0.6 % (0.5-1.5); BG DEOXYHEMOGLOBIN 7.6 % (0.0-5.0); BG FRACTION INSPIRED OXYGEN 28; BG HCO3 ACT 36.9 mmol/L (22.0-26.0); BG METHEMOGLOBIN 0.5 % (0.0-1.5); BG OXYGEN SATURATION 92.3 % (92.0-98.5); BG OXYHEMOGLOBIN 91.3 % (94.0-97.0); BG PCO2 54.9 mmHg (35.0-45.0); BG PH 7.445 (7.350-7.450); BG PO2 58.8 mmHg (75.0-100.0); BG SAMPLE SITE RIGHT RADIAL; BG TOTAL HEMOGLOBIN 11.7 g/dL (12.0-18.0); BG VENT MODE NASAL CANNULA
[2022-03-06] MEDS ORDERED: DILTIAZEM HCL 30MG TABLET PO SCH (18:00)
[2022-03-06] MEDS ORDERED: METHYLPREDNISOLONE SOD SUCC 40 MG/ML VIAL IV ONE (20:45)
[2022-03-06] MEDS ORDERED: AMIODARONE HCL 200 MG TABLET PO SCH (21:00)
== END 2022-03-06 22:58 | DRG 871 ==
LOC: ER 02-19 00:02 → 6EST 02-19 03:29 → EDBEDREQ 02-19 03:31 → EDBEDREQTM 02-19 03:31 → EDBEDREQSVC 02-19 03:31 → ENRESERV 02-19 07:04 → 6EST 02-19 08:17 → 3WST 02-19 14:34 → CVICU 02-22 18:51 → 5EST 02-28 18:20 → 7WST 03-02 17:47 → 5EST 03-03 10:36 → 7WST 03-03 11:25
PROVIDERS: ADMIT Internal Medicine; ATTEND Internal Medicine
PROC: 0D9670Z Drainage of Stomach with Drainage Device, Via Natural or Artificial Opening (ICD-10-PCS; 2022-02-21)
PROC: 5A09457 Assistance with Respiratory Ventilation, 24-96 Consecutive Hours, Continuous Positive Airway Pressure (ICD-10-PCS; principal; 2022-02-22)
PROC: 02HV33Z Insertion of Infusion Device into Superior Vena Cava, Percutaneous Approach (ICD-10-PCS; 2022-02-23)
PROC: B548ZZA Ultrasonography of Superior Vena Cava, Guidance (ICD-10-PCS; 2022-02-23)
PROC: 5A09357 Assistance with Respiratory Ventilation, Less than 24 Consecutive Hours, Continuous Positive Airway Pressure (ICD-10-PCS; 2022-02-24)
PROC: 5A09357 Assistance with Respiratory Ventilation, Less than 24 Consecutive Hours, Continuous Positive Airway Pressure (ICD-10-PCS; 2022-02-27)
DX: A41.9 Sepsis, unspecified organism (principal); G92.8 Other toxic encephalopathy; J96.02 Acute respiratory failure with hypercapnia; J96.01 Acute respiratory failure with hypoxia; J69.0 Pneumonitis due to inhalation of food and vomit; N17.0 Acute kidney failure with tubular necrosis; R65.21 Severe sepsis with septic shock; E44.0 Moderate protein-calorie malnutrition; K56.609 Unspecified intestinal obstruction, unspecified as to partial versus complete obstruction; I50.30 Unspecified diastolic (congestive) heart failure; E87.29 Other acidosis; E87.0 Hyperosmolality and hypernatremia; I47.1 Supraventricular tachycardia; I13.0 Hypertensive heart and chronic kidney disease with heart failure and stage 1 through stage 4 chronic kidney disease, or unspecified chronic kidney disease; Z66 Do not resuscitate; Z20.822 Contact with and (suspected) exposure to COVID-19; I27.20 Pulmonary hypertension, unspecified; I48.0 Paroxysmal atrial fibrillation; K80.20 Calculus of gallbladder without cholecystitis without obstruction; E87.6 Hypokalemia; D72.821 Monocytosis (symptomatic); I95.9 Hypotension, unspecified; E83.39 Other disorders of phosphorus metabolism; D63.1 Anemia in chronic kidney disease; E87.70 Fluid overload, unspecified; N18.9 Chronic kidney disease, unspecified; I08.1 Rheumatic disorders of both mitral and tricuspid valves; F03.90 Unspecified dementia, unspecified severity, without behavioral disturbance, psychotic disturbance, mood disturbance, and anxiety; I49.3 Ventricular premature depolarization; Z51.5 Encounter for palliative care; Z68.34 Body mass index [BMI] 34.0-34.9, adult; Z78.1 Physical restraint status; Z79.899 Other long term (current) drug therapy; Z82.49 Family history of ischemic heart disease and other diseases of the circulatory system; Z86.73 Personal history of transient ischemic attack (TIA), and cerebral infarction without residual deficits; Z90.49 Acquired absence of other specified parts of digestive tract
CPT/HCPCS: 36415; 36573; 36600; 70551; 71045; 74018; 74177; 74250; 76705; 76770; 76870; 78227; 80048; 80053; 80076; 80305; 80320; 81003; 82375; 82550; 82805; 82962; 83605; 83735; 83880; 84100; 84145; 84153; 84443; 84484; 85025; 86850; 86900; 87070; 87426; 92610; 93005; 93306; 93976; 94640; 94660; 99285; A4565; A6261; A9537; C1725; C9803; J0282; J0456; J0461; J0696; J1160; J1650; J1940; J2060; J2270; J2370; J2405; J3475; J3490; J7030; J7060; J7070; J7608; Q9963; Q9967; A4315; G0103; G0480